=== PATIENT | female | born 1995 | race Caucasian/White ===

== ENCOUNTER 2025-03-10 11:22 | Emergency (ER) | payer OTHER ==
[2025-03-10 11:29] VITALS: BP 145/95; PULSE 95; RESP 20; TEMP 98.1; BMI 26.6
[2025-03-10] MEDS: SODIUM CHLORIDE 0.9% 500 ML INFUS.BAG IV ONE (12:53)
[2025-03-10 13:15] LABS: ABSOLUTE IMMATURE GRANULOCYTES 0.06 x10^3/uL (0.0-0.031); BASOPHILS # 0.04 x10^3/uL (0.01-0.08); EOSINOPHIL % 0.3 % (0.7-5.8); EOSINOPHILS # 0.05 x10^3/uL (0.04-0.36); HEMATOCRIT 34.1 % (34.1-44.9); HEMOGLOBIN 11.7 g/dL (11.2-15.7); MCHC 34.3 g/dl (32.2-35.5); MEAN CELL VOLUME 93.9 fl (79.4-94.8); MEAN PLT VOLUME 9.4 fl (9.4-12.3); MONOCYTE # 0.52 x10^3/uL (0.24-0.86); MONOCYTE % 3.3 % (4.7-12.5); PLATELET COUNT 238 x10^3/uL (182-369); RDW 13.2 % (12.1-16.5)
[2025-03-10 13:24] LABS: URINE APPEARANCE CLEAR; URINE BILIRUBIN NEGATIVE (NEGATIVE); URINE COLOR YELLOW; URINE GLUCOSE (UA) NEGATIVE (NEGATIVE); URINE KETONE NEGATIVE (NEGATIVE); URINE LEUK ESTERASE 1+ (NEGATIVE); URINE NITRITE NEGATIVE (NEGATIVE); URINE PROTEIN NEGATIVE (NEGATIVE); URINE UROBILINOGEN 0.2 mg/dL (0.2-1.0)
[2025-03-10 13:41] LABS: EPI CELLS 2.1 /uL (0-25.1); HYALINE CASTS 0.37 /uL (0-3.1); URINE BACTERIA 846.6 /uL (0-1359); URINE RBC 21.1 /uL (0-23.9); URINE WBC 253.2 /uL (0-25.8)
[2025-03-10 13:45] LABS: POTASSIUM 4.2 mmol/L (3.5-5.1)
[2025-03-10 13:46] LABS: ALBUMIN 3.6 g/dl (3.4-5.0); BLOOD UREA NITROGEN 11.5 mg/dL (7-18); CALCIUM 9.5 mg/dL (8.5-10.1)
[2025-03-10 13:50] LABS: CREATININE 0.6 mg/dL (0.55-1.3)
[2025-03-10 13:52] LABS: BILIRUBIN,TOTAL 0.3 mg/dL (0.2-1); TOT PROT 7.2 g/dl (6.4-8.2)
== END 2025-03-10 16:38 | disposition home or self-care (01) ==
LOC: JER 11:22
DX: O23.42 Unspecified infection of urinary tract in pregnancy, second trimester (principal); O20.9 Hemorrhage in early pregnancy, unspecified; Z3A.18 18 weeks gestation of pregnancy
CPT/HCPCS: 36415; 76817-TC; 80053; 81003; 84702; 85025; 86850; 86900; 86901; 87086; 87186; 99284-25